=== PATIENT | female | born 1950 | race Caucasian/White ===

== ENCOUNTER 2025-01-05 05:29 | Observation (INO) ==
--- NOTE | 2024-11-30 11:28 | PAT Medication Instructions ---
Medication Instructions Date of Service November 30, 2024 Home Medications Lactobacillus acidophilus (Acidophilus chewable tablet) 1 tab PO QAM albuterol sulfate 90 mcg/actuation aerosol inhaler 1 inh inhalation QID PRN Cough ascorbic acid (vitamin C) 250 mg tablet (Vitamin C) 500 mg PO QAM baclofen 10 mg tablet 10 mg PO QAM calcium 600 mg (as carbonate)-vit D3 20 mcg (800 unit) chewable tablet (Caltrate plus D) 1 tab PO QAM carvedilol 25 mg tablet 25 mg PO BID celecoxib 50 mg capsule (Celebrex) 50 mg PO QAM cholecalciferol (vitamin D3) 50 mcg (2,000 unit) capsule (Vitamin D3) 50 mcg PO QAM cyanocobalamin (vitamin B-12) 500 mcg chewable tablet 500 mcg PO QAM denosumab 60 mg/mL subcutaneous syringe (Prolia) 60 mg subcut UD ferrous sulfate 325 mg (65 mg iron) tablet (iron) 325 mg PO QAM fluticasone propionate 50 mcg/actuation nasal spray,suspension 1 spray intranasal PM guaifenesin 600 mg tablet, extended release 12 hr (Mucinex) 600 mg PO PM lisinopril 10 mg tablet 10 mg PO PM metformin 1,000 mg tablet 1,000 mg PO BID multivitamin 1 tab PO QAM simvastatin 40 mg tablet 40 mg PO HS spironolactone 25 mg tablet 12.5 mg PO QAM ASK your surgeon for instructions celecoxib 50 mg capsule (Celebrex) 50 mg PO QAM ASK your prescriber and surgeon denosumab 60 mg/mL subcutaneous syringe (Prolia) 60 mg subcut UD DO NOT take the morning of surgery Lactobacillus acidophilus (Acidophilus chewable tablet) 1 tab PO QAM ascorbic acid (vitamin C) 250 mg tablet (Vitamin C) 500 mg PO QAM calcium 600 mg (as carbonate)-vit D3 20 mcg (800 unit) chewable tablet (Caltrate plus D) 1 tab PO QAM cholecalciferol (vitamin D3) 50 mcg (2,000 unit) capsule (Vitamin D3) 50 mcg PO QAM cyanocobalamin (vitamin B-12) 500 mcg chewable tablet 500 mcg PO QAM ferrous sulfate 325 mg (65 mg iron) tablet (iron) 325 mg PO QAM metformin 1,000 mg tablet 1,000 mg PO BID multivitamin 1 tab PO QAM spironolactone 25 mg tablet 12.5 mg PO QAM Take morning of surgery With a small sip of water, OTHERWISE NOTHING TO EAT OR DRINK AFTER MIDNIGHT: albuterol sulfate 90 mcg/actuation aerosol inhaler 1 inh inhalation QID PRN Cough (use if needed; please bring rescue inhaler with you to hospital day of surgery if possible) baclofen 10 mg tablet 10 mg PO QAM carvedilol 25 mg tablet 25 mg PO BID Take evening before surgery albuterol sulfate 90 mcg/actuation aerosol inhaler 1 inh inhalation QID PRN Cough (if needed) carvedilol 25 mg tablet 25 mg PO BID fluticasone propionate 50 mcg/actuation nasal spray,suspension 1 spray intranasal PM guaifenesin 600 mg tablet, extended release 12 hr (Mucinex) 600 mg PO PM lisinopril 10 mg tablet 10 mg PO PM metformin 1,000 mg tablet 1,000 mg PO BID simvastatin 40 mg tablet 40 mg PO HS Other Notes If you have any questions please call us at [phone] or [phone] or [phone] or [phone]
--- NOTE | 2024-12-08 10:34 | Anesthesiology Consultation ---
Date of Service December 08, 2024 Assessment & Plan (1) Encounter for pre-operative examination: Chart Review Chart Review: Acceptable Risk for Surgery (pending PCP clearance 12/14/24, cardio clearance 01/18/25 and review of available cardio records ) and Patient seen in Pre Admission Testing - Awaiting PCP clearance 12/14/24 (Dr Lawanda Bermudez- [facility] in [place])- please send preop testing for PCP review - Awaiting cardio clearance 12/29/24 (Dr. Mccarty- [facility]) - Please fax for most recent cardiology note, ECHO/heart cath/stress test in past six years - Check BSG AM DOS Left limb restriction - Patient is not an ideal OPJ candidate (currently 23 hour obs (surgeon's office confirmed)) Per PAT appt on 12/08/24, no recent illness/disease exposures, illness related symptoms (with exception to mild residual cough from URI 3 weeks ago), or recent illness/disease positive tests. Will leave to surgeon's discretion if preop Covid testing needed Teaching & Discussion Pre-Anesthesia Teaching/Discussion Notes: Instructed NPO after midnight before surgery,except medications with 15 cc of water. Medication instructions provided according to the PAT guidelines. History Surgery Operation Date: 01/05/25 09:35 Proposed Procedures p Left Total Knee Arthroplasty - Vicente Mix MD Height/Weight Height: 5 ft 0.5 in Weight: 68.4 kg Allergies Allergy/AdvReac Type Severity Reaction Status Date / Time alendronate sodium Allergy Intermediate hands and Verified 11/26/24 13:37 [From Fosamax] feet swell Medications Home Medications Medication Instructions Recorded Confirmed Last Taken Lactobacillus acidophilus 1 tab PO QAM 11/26/24 11/26/24 Unknown (Acidophilus chewable tablet) albuterol sulfate 90 mcg/actuation 1 inh inhalation QID PRN Cough 11/26/24 11/26/24 Unknown aerosol inhaler ascorbic acid (vitamin C) 250 mg 500 mg PO QAM 11/26/24 11/26/24 Unknown tablet (Vitamin C) baclofen 10 mg tablet 10 mg PO QAM 11/26/24 11/26/24 Unknown calcium 600 mg (as carbonate)-vit 1 tab PO QAM 11/26/24 11/26/24 Unknown D3 20 mcg (800 unit) chewable tablet (Caltrate plus D) carvedilol 25 mg tablet 25 mg PO BID 11/26/24 11/26/24 Unknown celecoxib 50 mg capsule (Celebrex) 50 mg PO QAM 11/26/24 11/26/24 Unknown cholecalciferol (vitamin D3) 50 50 mcg PO QAM 11/26/24 11/26/24 Unknown mcg (2,000 unit) capsule (Vitamin D3) cyanocobalamin (vitamin B-12) 500 500 mcg PO QAM 11/26/24 11/26/24 Unknown mcg chewable tablet denosumab 60 mg/mL subcutaneous 60 mg subcut UD 11/26/24 11/26/24 Unknown syringe (Prolia) ferrous sulfate 325 mg (65 mg 325 mg PO QAM 11/26/24 11/26/24 Unknown iron) tablet (iron) fluticasone propionate 50 1 spray intranasal PM 11/26/24 11/26/24 Unknown mcg/actuation nasal spray,suspension guaifenesin 600 mg tablet, 600 mg PO PM 11/26/24 11/26/24 Unknown extended release 12 hr (Mucinex) lisinopril 10 mg tablet 10 mg PO PM 11/26/24 11/26/24 Unknown metformin 1,000 mg tablet 1,000 mg PO BID 11/26/24 11/26/24 Unknown multivitamin 1 tab PO QAM 11/26/24 11/26/24 Unknown simvastatin 40 mg tablet 40 mg PO HS 11/26/24 11/26/24 Unknown spironolactone 25 mg tablet 12.5 mg PO QAM 11/26/24 11/26/24 Unknown Past Medical History Medical History (Updated 12/08/24 @ 16:05 by Ernestine Butts PA-C) Arthritis Cardiomyopathy follows with Dr. Wei Mccarty [facility] Dental infection - Infected dental root (from previous removed dental extraction)- removed 12/07/24- prescribed Amoxicillin x 7-10 days and pain medication, mouthwash - Has follow up with oral surgeon prior to TKA - Patient will make surgeon's office aware Diabetes mellitus, type 2 NIDDM Frequent bowel movements in mornings History of COVID-2020- no current symptoms History of myocardial infarction "mild" November 2020 > cath - no stents- medically managed History of skin cancer removed History of uterine cancer 2023 > complete hyster > 3 internal rad. tx Hx of breast cancer 2009 / chemo and left mastectomy left limb restriction Hyperlipidemia Hypertension Lower resp. tract infection seen at [facility] in [place] on 11/24/24, - was treated- very slight residual cough Lymphedema left leg > Dr. Mix aware per pt report > support hose Osteoporosis Spinal stenosis Exercise / Class Metabolic Activity II 4-5 Yardwork/Stairs/Walk up hill (one flight of stairs - no chest pain or SOB ) Past Family History Family History Father Cerebral aneurysm Diabetes Mother Cancer Past Surgical History Surgical History History of bunionectomy bilat History of cardiac cath November 2020 > no stents History of colonoscopy History of dilatation and curettage History of esophagogastroduodenoscopy (EGD) History of hysterectomy History of kidney surgery left > benign growth History of tonsillectomy History of total knee replacement right Hx of hernia repair inguinal Hx of total mastectomy of left breast S/P epidural steroid injection Past Anesthesia History No Hx of Anesthesia Complications and No Family Hx of Anesthesia Complications History of PONV No Hx of PONV and No Hx of Motion Sickness Social History Smoking Status: Never smoker Do You Dip or Chew Tobacco: No Hx Alcohol Use: Yes Alcohol type: wine alcohol intake frequency: holidays/special occasions only Hx Substance Use: No substance use type: does not use Review of Systems Patient denies chest pain, shortness of breath, dyspnea on exertion, reflux, cough, wheezing, palpitations. No hx of seizures, stroke, apnea/snoring. No hx of blood clots or blood transfusions Physical Exam Vital Signs VITALS BP 115/69 P 62 TEMP 98.0 SP02 96% RESP 16 Constitutional no acute distress ENMT Mouth: no TMJ clicking Thyromental Distance: > or= 3.5 Finger Breadths (3.5) Mallampati Class: III Top partial denture Neck neck extension not limited Respiratory normal respiratory effort; no respiratory distress Auscultation: lungs clear to auscultation bilaterally; no wheezes Cardiovascular Rate/Rhythm: regular rate and regular rhythm Heart Sounds: no murmur Vessels: no carotid bruit Musculoskeletal Spine: no pain with cervical ROM Extremities: extremities normal to inspection Psychiatric Orientation: alert Lab Results Anesthesia Preop Results Results Anesthesia Widget: WBC 6.24 K/ul (4.8-10.8) 12/08/24 Hgb 11.2 g/dl (12.0-16.0) L 12/08/24 Hct 35.2 % (37.0-47.0) L 12/08/24 Plt 320 K/uL (130-400) 12/08/24 Na 138 mmol/L (136-145) 12/08/24 K 4.2 mmol/L (3.5-5.1) 12/08/24 Cl 106 mmol/L (98-107) 12/08/24 CO2 27 mmol/L (21-32) 12/08/24 BUN 19 mg/dl (6-23) 12/08/24 Creat 0.45 mg/dl (0.6-1.2) L 12/08/24 Glucose Level 100 mg/dl (70-99(Fasting)) H 12/08/24 PT 10.6 Seconds (9.0-12.0) 12/08/24 PTT 26 Seconds (21-31) 12/08/24 INR 1.0 (0.9-1.1) 12/08/24 HA1c 7.2 % (4.5-5.6) H 12/08/24 Urine Color Dark Yellow 12/08/24 Urine Appearance Clear (Clear) 12/08/24 Urine pH 8.0 (4.5-7.5) H 12/08/24 Urine Specific Carey 1.016 (1.000-1.030) 12/08/24 Urine Protein Negative (Negative) 12/08/24 Urine Glucose (UA) Negative (Negative) 12/08/24 Urine Ketones Negative (Negative) 12/08/24 Urine Blood Negative (Negative) 12/08/24 Urine Nitrite Negative (Negative) 12/08/24 Urine Bilirubin Negative (Negative) 12/08/24 Urine Urobilinogen Negative (Negative) 12/08/24 Urine Leukocyte Esterase 1+ (Negative) H 12/08/24 Urine WBC (Auto) 0-5 /hpf (0-5) 12/08/24 Urine RBC (Auto) 0-2 /hpf (0-2) 12/08/24 Urine Hyaline Casts (Auto) 0-2 /lpf (0-2) 12/08/24 Urine Epithelial Cells (Auto) 0-2 /hpf (0-2) 12/08/24 Urine Bacteria (Auto) None Seen (None Seen) 12/08/24 Blood Type A Positive 12/08/24 Antibody Screen NEGATIVE 12/08/24 Testing Electrocardiogram Date: 12/08/24 Findings: + NSR @ (62bpm) RBBB Chest X-Ray Date: 12/08/24 Findings: + NAD and + cardiomegaly (mild)
--- NOTE | 2025-01-03 19:17 | History & Physical Report ---
Date of Service January 03, 2025 Assessment & Plan (1) Osteoarthritis of left knee: Plan: Severe osteoarthritis left knee mainly patellofemoral osteoarthritis with bone loss. Proceed with left total knee replacement. Osteoarthritis type: primary Qualified Code(s): M17.12 - Unilateral primary osteoarthritis, left knee History of Present Illness Chief Complaint: Chronic left knee pain Primary Care Provider: Lawanda Bermudez MD 74-year-old female with progressive left knee pain failed conservative management. History of right knee replacement in the past. Patient presents for left knee replacement Patient denies headaches, sweats, fevers, chills, double vision, blurred vision, cough, sore throat, dysphagia, chest pain, sob, wheezing, n/v/d/c, numbness, tingling, fatigue, urinary symptoms, mood disorders. ROS positive for remote history of heart attack 12/11/2020, hypertension, flu this season, shortness of breath walking up a hill or running short distance low back pain sciatica arthritis. Allergies Allergy/AdvReac Type Severity Reaction Status Date / Time alendronate sodium Allergy Intermediate hands and Verified 11/26/24 13:37 [From Fosamax] feet swell Home Medications Medication Instructions Recorded Confirmed Type Lactobacillus acidophilus 1 tab PO QAM 11/26/24 11/26/24 History (Acidophilus chewable tablet) albuterol sulfate 90 mcg/actuation 1 inh inhalation QID PRN Cough 11/26/24 11/26/24 History aerosol inhaler ascorbic acid (vitamin C) 250 mg 500 mg PO QAM 11/26/24 11/26/24 History tablet (Vitamin C) baclofen 10 mg tablet 10 mg PO QAM 11/26/24 11/26/24 History calcium 600 mg (as carbonate)-vit 1 tab PO QAM 11/26/24 11/26/24 History D3 20 mcg (800 unit) chewable tablet (Caltrate plus D) carvedilol 25 mg tablet 25 mg PO BID 11/26/24 11/26/24 History celecoxib 50 mg capsule (Celebrex) 50 mg PO QAM 11/26/24 11/26/24 History cholecalciferol (vitamin D3) 50 50 mcg PO QAM 11/26/24 11/26/24 History mcg (2,000 unit) capsule (Vitamin D3) cyanocobalamin (vitamin B-12) 500 500 mcg PO QAM 11/26/24 11/26/24 History mcg chewable tablet denosumab 60 mg/mL subcutaneous 60 mg subcut UD 11/26/24 11/26/24 History syringe (Prolia) ferrous sulfate 325 mg (65 mg 325 mg PO QAM 11/26/24 11/26/24 History iron) tablet (iron) fluticasone propionate 50 1 spray intranasal PM 11/26/24 11/26/24 History mcg/actuation nasal spray,suspension guaifenesin 600 mg tablet, 600 mg PO PM 11/26/24 11/26/24 History extended release 12 hr (Mucinex) lisinopril 10 mg tablet 10 mg PO PM 11/26/24 11/26/24 History metformin 1,000 mg tablet 1,000 mg PO BID 11/26/24 11/26/24 History multivitamin 1 tab PO QAM 11/26/24 11/26/24 History simvastatin 40 mg tablet 40 mg PO HS 11/26/24 11/26/24 History spironolactone 25 mg tablet 12.5 mg PO QAM 11/26/24 11/26/24 History Past Med/Surg History Problem List (Updated 01/03/25 @ 19:16 by Vicente Mix MD) Osteoarthritis of left knee Encounter for pre-operative examination Medical History Dental infection - Infected dental root (from previous removed dental extraction)- removed 12/07/24- prescribed Amoxicillin x 7-10 days and pain medication, mouthwash - Has follow up with oral surgeon prior to TKA - Patient will make surgeon's office aware Lower resp. tract infection seen at [facility] in [place] on 11/24/24, - was treated- very slight residual cough Arthritis Osteoporosis Spinal stenosis Frequent bowel movements in mornings Diabetes mellitus, type 2 NIDDM Lymphedema left leg > Dr. Mix aware per pt report > support hose History of uterine cancer 2023 > complete hyster > 3 internal rad. tx Hx of breast cancer 2009 / chemo and left mastectomy left limb restriction History of skin cancer removed History of myocardial infarction "mild" November 2020 > cath - no stents- medically managed Cardiomyopathy follows with Dr. Wei Mccarty [facility] Hypertension Hyperlipidemia History of COVID-2020- no current symptoms Surgical History History of dilatation and curettage S/P epidural steroid injection Hx of hernia repair inguinal History of esophagogastroduodenoscopy (EGD) History of colonoscopy History of kidney surgery left > benign growth History of bunionectomy bilat History of total knee replacement right History of hysterectomy Hx of total mastectomy of left breast History of tonsillectomy History of cardiac cath November 2020 > no stents Family History Father Cerebral aneurysm Diabetes Mother Cancer Social History Smoking Status: Never smoker Second Hand Exposure: Yes ( smoked > quit 15 yrs ago); Do You Dip or Chew Tobacco: No; Tobacco Cessation Education Requested by Patient: No Hx Alcohol Use: Yes Alcohol type: wine Hx Substance Use: No Preferred Language: British Communication Ability: Effective Internet Cafe Manager Required: No Beliefs That Will Affect Care: None Current Living Situation: Spouse Other Information That Helps Us Care for You: No Feels Safe at Home: Yes Safety Concerns: Feels Safe At This Time Assistive Devices: Denture - Upper and Glasses Review of Systems All systems reviewed & are unremarkable except as noted in HPI & below Physical Exam Constitutional: WD/WN, vitals as above Respiratory: normal respiratory effort; no respiratory distress Cardiovascular: Rate/Rhythm: regular rate and regular rhythm Musculoskeletal: Left knee mild effusion moderate to severe patellofemoral crepitation with lateral aligned patella and increased patellar tilt. No instability 0 to 120 degrees range of motion normal strength. Chronic edema left ankle with large varicose veins left lower extremity with good arterial circulation. Skin: no rashes, warm and dry Neurologic: normal touch/pain/proprioception Psychiatric: A+Ox3, euthymic affect Results & Data Diagnostic Findings Radiographs left knee demonstrate severe patellofemoral osteoarthritis with bone loss and patellofemoral malalignment. 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
[2025-01-05] MEDS: LR 500ML BOLUS, THEN 15ML/HR IV SCH (06:07)
[2025-01-05] MEDS: LR 60ML/HR IV SCH (06:07)
[2025-01-05] MEDS: ACETAMINOPHEN 500 MG TAB PO SCH ×2 (06:08→13:07)
[2025-01-05] MEDS: GABAPENTIN 300 MG CAP PO SCH (06:09)
[2025-01-05] MEDS: CeleBREX 200 MG CAP PO SCH (06:09)
[2025-01-05] MEDS: FAMOTIDINE 20 MG TAB PO SCH (06:09)
[2025-01-05] MEDS: METOCLOPRAMIDE HCL 10 MG TABLET PO SCH (06:09)
[2025-01-05] MEDS ORDERED: BUPIVACAINE 0.5 % 5 MG/1 ML PF 10ML VIAL ONE (06:29)
[2025-01-05] MEDS ORDERED: ROPIVACAINE 0.5% 5 MG/ML 30 ML VIAL ONE (06:29)
[2025-01-05] MEDS ORDERED: fentaNYL citrate PF 100 MCG/2 ML VIAL ONE (06:39)
[2025-01-05] MEDS ORDERED: PROPOFOL IV EMULSION 10 MG/ML 20 ML VIAL IV ONE (06:39)
[2025-01-05] MEDS ORDERED: MIDAZOLAM HCL 1 MG/ML 2ML VIAL ONE (06:39)
[2025-01-05] MEDS ORDERED: DEXAMETHASONE SOD INJ 4 MG/ML VIAL ONE (06:39)
[2025-01-05] MEDS ORDERED: ONDANSETRON INJ 2 MG/ML 2 ML VIAL ONE (06:39)
--- NOTE | 2025-01-05 06:44 | History & Physical Bridge Note ---
Date of Service January 05, 2025 History & Physical Bridge Note I have examined the patient, reviewed the History & Physical and in the interval since the performance of the History & Physical I have noted the following changes of clinical significance: no changes noted
[2025-01-05] MEDS ORDERED: ONDANSETRON INJ 2 MG/ML 2 ML VIAL IV PRN ×2 (06:45→11:55)
[2025-01-05] MEDS ORDERED: HYDROmorphone INJ 1 MG/ML SYRINGE IV PRN (06:45)
[2025-01-05] MEDS ORDERED: ePHEDrine sulfate 50 MG/ML AMP IV PRN (06:45)
[2025-01-05] MEDS ORDERED: fentaNYL citrate PF 100 MCG/2 ML VIAL IV PRN (06:45)
[2025-01-05] MEDS ORDERED: ATROPINE SULFATE 0.1 MG/ML 10ML SYR IV PRN (06:45)
[2025-01-05] MEDS: TRANEXAMIC ACID 1,000 MG **IV Pre-op IV SCH (06:50)
[2025-01-05] MEDS: ceFAZolin 2000MG 2,000 MG/15 ML SYR IV SCH ×2 (07:00→16:46)
[2025-01-05] MEDS: ROPIV 0.5% 246mg, Ketorolac 30mg, EPINEPHrine 0.5mg in NSS INFIL SCH (07:42)
[2025-01-05] MEDS: ORTHO JOINT ANESTHETIC ONE (07:43)
[2025-01-05] MEDS: TRANEXAMIC ACID 1,000 MG **IV Intra-op IV SCH (09:02)
[2025-01-05] MEDS ORDERED: ePHEDrine sulfate 50 MG/5 ML SYR ONE (09:04)
[2025-01-05] MEDS ORDERED: PHENYLEPHRINE 100MCG/ML 5ML SYR ONE (09:04)
--- NOTE | 2025-01-05 09:48 | Operative Report ---
Post Operative Report Pre & Post Diagnosis Operation Date: 01/05/25 07:00 Pre-Op Diagnosis: Left Knee Osteoarthritis Post-Op Diagnosis: Left Knee Osteoarthritis I identified the patient and participated in the time-out.: Yes Procedure Operation Date: 01/05/25 07:00 Actual Procedures p Left Total Knee Arthroplasty(Left), toni and Acticoat superficial wound VAC application- Vicente Mix MD Surgeon Vicente Mix MD Insurance Salesperson Andrei MATOS Estimated Blood Loss 5 Findings Consistent with Post-Op Diagnosis Specimens Bone cuts Drains 2 Hemovac Anesthesia Type MAC Spinal Regional Complications none Disposition Disposition: Recovery Room Indications 74-year-old female with advanced osteoarthritis her left knee extensive conservative management now she has significant osteoarthritis [id number] patellofemoral joint with patellofemoral malalignment and bone loss in the patellofemoral joint. Description of Procedure Patient taken to the operating room the size under spinal MAC regional block anesthesia. Patient was placed supine on the operating table. A pneumatic tourniquet was placed about the left upper thigh. The left lower extremity was prepped and draped in sterile fashion. Knee exam demonstrated 0 through 115 degrees range of motion with lateral tracking patella and [id number] patellofemoral joint with no instability and a moderate effusion. The leg was elevated exsanguinated with an Esmarch bandage and pneumatic tourniquet was raised to 300 millimeters of mercury. Skin incised sharply in longitudinal fashion. Subcutaneous flaps elevated. Incision was made through the medial retinaculum extending up in the mid third of the quadriceps tendon and down to the medial tibial tubercle. Intra-articular findings demonstrated severe patellofemoral osteoarthritis with large patellar osteophytes loose bodies in the lateral retinaculum and bone loss on the patella with ridging and thinning of the patella which was thinned down to 16 mm. Patient had some tricompartmental arthritic changes and the entire lateral femoral condyle was down to exposed bone with eburnation. The [facility] triChatLinguallon total knee arthroplasty system was used. To expose the knee the infrapatellar fat pad was resected. The meniscal remnants and cruciate ligaments were resected. The anterior fat pad over the femur in the area of the location of the anterior flange of the femoral component was resected. The lateral synovial bands were released. The femur was exposed. An intramedullary drill hole was made into t he canal. A guide sakina was placed. Distal femoral cutting guide was adjusted to resect a 5 degree valgus cut with a millimeters distal femur resected. The knee was extended and a subperiosteal peel lateral release was performed around the patella. The patella osteophytes were resected. Minimal bone was removed from the patella creating a 14 mm thick patella which was at the most deficient area of the lateral patella. Patella had a round shape so used a symmetrical patella. The 3 drill holes were made. Attention was taken back to the femur which was exposed with retractors and the femoral sizing guide was pinned in position. The drill holes were placed in 3 of external rotation to match the epicondylar axis. The femur sized for a 3 component. In order not to notch anteriorly due to some AP mL mismatch we used the +1.5 adjustment block to anteriorly translate femoral component. After this guide was impacted a drill holes were made and guide removed and subsequently the 4-in-1 cutting block was placed and then the anterior posterior and chamfer cuts are made. The tibia was then subluxed. The external tibial cutting guide was adjusted to make a perpendicular cut to the long axis of the tibia. Cut was adjusted for slope. A lamina medical driver was used and the flexion extension gaps were balanced. No releases were required. medial posterior osteophytes were removed. All meniscal remnants were resected. The tibia exposed and the trial tibial component size 3 was externally rotated in line with the tibial tubercle and pinned in position. The punch for stem was used. The notch cutting device was centered appropriately and the femoral notch cut was made. The femoral trial was inserted. Trial tibial inserts were placed and size 9 gave balanced ligaments through flexion and extension. Patella tracking was assessed. The patella tracked centrally. The trial components were then removed and the orthomix anesthetic cocktail was injected per protocol. The knee was then copiously irrigated with pulsatile lavage saline solution. Final components were then cemented with Refobacin cement. Final components were Gillian triathlon posterior stabilized left size 3 femoral component with fixation pegs with a 3 tibial component with a universal baseplate with a 12 x 50 mm cemented stem. There is an X.3 polyethylene size 9 PS tibial bearing insert and a X.3 po lyethylene 33 x 9 mm symmetrical patella.. After the cement cured 3-minute Betadine soak was performed followed by further pulsatile lavage irrigation with saline and 2 Hemovac drains were brought out laterally. The quadriceps tendon and medial retinaculum were closed with #2 FiberWire [id number] sutures along the medial retinaculum medial side of the patella and distal quadriceps tendon and an additional [id number] suture at the apex of the quadriceps tendon split proximally and an additional [id number] suture at the level of the tibial polyethylene in the patella tendon. a 0 running locking STRATAFIX suture was placed starting at the proximal split in the quadriceps tendon extending down to the inferior pole the patella and then below that level [id number] #1 Vicryl sutures were utilized to repair the medial retinaculum to the patella tendon. The knee was taken through full range of motion and the repair was secure. Knee range of motion was 0 through 130 degrees. The subcutaneous tissues were closed with 2-0 Vicryl sutures. Skin was closed with surgical david. A toni and Acticoat superficial wound VAC was applied. The patient tolerated the procedure well. Andrei MATOS was my physician integration assistant who participated as environmental emergencies assistant and was involved in all aspects of the procedure including patient positioning prepping and draping,leg positi oning ,soft tissue retraction and instrument management and participated in the closing and application of the superficial wound VAC and will participate in postoperative care of the patient. The patient tolerated the procedure well. I attest to the content of the Intraoperative Record and any orders documented therein. Any exceptions are noted below.
--- NOTE | 2025-01-05 09:59 | XRay Report ---
XR knee LT 1 or 2V routine CLINICAL HISTORY: Surgical Post Op COMPARISON: None FINDINGS: Left knee prosthesis shows no hardware complication. There is expected soft tissue gas. Po stoperative drain and skin david are present. IMPRESSION: Unremarkable postoperative exam. ACT 112: Negative or not required by law. Electronically signed by: Romero Hooks M.D. 01/05/2025 9:58 AM
--- NOTE | 2025-01-05 10:22 | Anesthesiology Progress Note ---
Date of Service January 05, 2025 Anesthesia Post Procedure Vital Signs Vital Signs: Temp Pulse Resp BP Pulse Ox O2 Del Method O2 Flow Rate 01/05/25 10:15 64 18 124/76 95 Room Air 01/05/25 10:00 36.3 C L 61 15 129/74 95 Room Air 01/05/25 09:50 65 17 134/76 94 Room Air 01/05/25 09:40 63 15 139/81 98 Oxymask 4 01/05/25 09:32 36.2 C L 62 14 143/80 H 97 Oxymask 10 01/05/25 05:53 36.6 C 72 20 134/71 98 Room Air Transfer of Care Handoff Completed per policy Notes Mental Status: alert / awake / arousable and participated in evaluation Patient Amnestic to Procedure: Yes Nausea / Vomiting: adequately controlled Pain: adequately controlled Airway Patency, RR, SpO2: stable & adequate BP & HR: stable & adequate Hydration State: stable & adequate Neuraxial Anesthesia: was administered and sensory block is resolving Anesthetic Complications: no major complications apparent and Pt Satisfied with anesthetic care
[2025-01-05] MEDS ORDERED: ALBUTEROL HFA 8 GM INHALER INH PRN (11:55)
[2025-01-05] MEDS ORDERED: MAGNESIUM HYDROXIDE SUSP 30 ML UDC PO PRN (11:55)
[2025-01-05] MEDS ORDERED: HYDROmorphone INJ 0.5 MG/0.5 ML SYR IV PRN (11:55)
[2025-01-05] MEDS ORDERED: bisacodyL 10 MG SUPP PR PRN (11:55)
[2025-01-05] MEDS ORDERED: NALOXONE HCL 0.4 MG/1 ML VIAL/CARP IV PRN (11:55)
[2025-01-05] MEDS ORDERED: ALUMINUM/MAGNESIUM SUSP 30 ML UDC PO PRN (11:55)
[2025-01-05] MEDS ORDERED: diphenhydrAMINE Capsule 25 MG CAP PO PRN (11:55)
[2025-01-05] MEDS ORDERED: NON-FORMULARY MEDICATION (Denosumab [Prolia] 60 mg/mL Syringe) SQ SCH (11:55)
[2025-01-05] MEDS ORDERED: METOCLOPRAMIDE HCL INJ 5 MG/ML 2 ML VIAL IV PRN (11:55)
[2025-01-05] MEDS ORDERED: PHARMACY GLYCEMIC MGMT CONSULT PRN (11:55)
[2025-01-05] MEDS: INSULIN ASPART PER UNIT CHARGE SC SCH (13:13)
--- NOTE | 2025-01-05 14:34 | Pharmacy Report ---
Pharmacy Glycemic Short Note 2 - Date of Service January 05, 2025 - Glycemic Short BSG Results (Last 24 hours): 01/05/25 01/05/25 01/05/25 05:53 09:34 13:10 POC Glucose 134 H 126 H 118 H OUTPATIENT ANTIDIABETIC REGIMEN: * metformin 1000mg po BID HbA1c: 7.2% on 12/08/24 ASSESSMENT: * 74 year old female admitted today for a left total knee arthroplasty (POD #0). Pharmacy was consulted for glycemic management postop. * Preop BSG was 126mg/dL and post op was was 118mg/dL. (does not appear that patient received steroids pre/intraop). * Will not start basal insulin at this time and will start a very conservative bolus insulin regimen with only CF (no CR). May need to tighten these parameters some tomorrow as she is ordered a dose of dexamethasone tomorrow morning. PLAN FOR INPATIENT GLYCEMIC CONTROL: * Hold outpatient oral diabetes medications * Basal insulin * NONE * Bolus insulin * NovoLog per scale ACHS or Q6hrs while NPO * Goal Range: Low 110 mg/dL - High 140 mg/dL * Correction Factor: 40 mg/dL/unit * Nutritional / Prandial insulin per carb ratio : NONE
[2025-01-05] MEDS: TRANEXAMIC ACID / 0.7% NACL 1,000 MG/100 ML BAG IV SCH (16:29)
[2025-01-05] MEDS: carvediloL 25 MG TAB PO SCH (18:16)
[2025-01-05] MEDS: oxyCODONE HCL IR 5 MG TAB (IMMEDIATE RELEASE) PO PRN (18:20)
[2025-01-05] MEDS: ASPIRIN 81 MG ECTAB PO SCH (20:03)
[2025-01-05] MEDS: FLUTICASONE PROPIONATE NA SPR 16 GM BTL SCH (20:04)
[2025-01-05] MEDS: SIMVASTATIN 40 MG TAB PO SCH (20:04)
[2025-01-05] MEDS: DOCUSATE SODIUM 100 MG CAP PO SCH (20:04)
[2025-01-05] MEDS: lisinopril 10 MG TAB PO SCH (20:04)
[2025-01-05] MEDS: guaiFENesin 600 MG TABCR PO SCH (20:04)
[2025-01-05] MEDS: SENNA 8.6 MG TAB PO SCH (20:04)
[2025-01-05] MEDS ORDERED: metFORMIN HCL 500 MG TAB PO SCH (21:00)
[2025-01-05] MEDS: KETOROLAC TROMETHAMINE 15 MG/ML VIAL IV PRN (23:06)
[2025-01-06 03:21] VITALS: TEMP 98.1; O2SAT 95
[2025-01-06 06:53] VITALS: BP 119/74; PULSE 67; RESP 14
--- NOTE | 2025-01-06 08:24 | Orthopedic Progress Note ---
Date of Service January 06, 2025 Assessment & Plan (1) Osteoarthritis of left knee: Plan: Postop day 1 total knee replacement left knee satisfactory progress. Drainage has decreased appointment she can have the drain DC'd if she is ready for discharge. Patient needs to be seen by OT PT make sure she is independent for discharge. Patient wants to go ahead and do outpatient physical therapy social help do home exercises for now until Friday when she has a set up. Patient needs to be instructed in appropriate home exercise program for the next several days to do daily. Follow-up in 2 weeks for staple removal. Severe osteoarthritis left knee mainly patellofemoral osteoarthritis with bone loss. Proceed with left total knee replacement. Admission and Anticipated Discharge Date Admission Date: January 05, 2025 Subjective No complaints doing well Review of Systems Review of Systems: Unremarkable Physical Exam Musculoskeletal: Dressing dry and intact circulation sensory and motor exam all intact. Independent straight leg raise. Results & Data Vital Signs (Past 12 Hours) Vital Signs Temp Pulse Resp BP Pulse Ox O2 Del Method 01/06/25 06:49 36.7 C 67 14 119/74 95 Room Air 01/06/25 03:19 36.7 C 65 16 103/70 95 Room Air 01/05/25 23:12 36.6 C 66 16 100/64 94 Room Air Laboratory Results Pending Diagnostic Findings Well aligned knee replacement left knee (1) Osteoarthritis of left knee Osteoarthritis type: primary Qualified Code(s): M17.12 - Unilateral primary osteoarthritis, left knee
[2025-01-06] MEDS: CALCIUM 600MG + VIT D 400 IU TAB PO SCH (08:36)
[2025-01-06] MEDS: ADVANCED PROBIOTIC 625 MG CAPSULE PO SCH (08:36)
[2025-01-06] MEDS: BACLOFEN 10 MG TAB PO SCH (08:36)
[2025-01-06] MEDS: CYANOCOBALAMIN (B-12) 500 MCG TABLET PO SCH (08:36)
[2025-01-06] MEDS: MULTIVITAMIN TAB PO SCH (08:36)
[2025-01-06] MEDS: FERROUS SULFATE 325 MG TAB PO SCH (08:36)
[2025-01-06] MEDS: CHOLECALCIFEROL 25 MCG (1000 UNITS) TAB PO SCH (08:37)
[2025-01-06] MEDS: dexAMETHasone 10 MG in SYRINGE 0 ML IV SCH (08:37)
[2025-01-06] MEDS: ASCORBIC ACID 500 MG TAB PO SCH (08:37)
[2025-01-06 08:59] LABS: Hematocrit (blood only) 34.1 % (37.0-47.0); Hemoglobin 10.9 g/dl (12.0-16.0); Mean Corpuscular Hemoglobin 27.3 pg (25.0-34.0); Mean Corpuscular Volume 85.5 fL (80.0-100.0); Platelet Count 301 K/uL (130-400); RDW Coefficient of Variation 15.1 % (11.5-14.5); RDW Standard Deviation 47.3 fL (36.4-46.3); Red Blood Count 3.99 M/uL (4.20-5.40); White Blood Count 6.33 K/ul (4.8-10.8)
[2025-01-06] MEDS: SPIRONOLACTONE 12.5 MG TAB PO SCH (09:06)
[2025-01-06 09:13] LABS: Calcium 8.7 mg/dl (8.6-10.3); Creatinine Clr Calc Pharmacy 82.9 ml/min; Potassium 4.2 mmol/L (3.5-5.1)
== END 2025-01-06 11:28 | disposition home health service (06) ==
LOC: 3N 05:29 → ASU 05:29